=== PATIENT | female | born 1960 | race Caucasian/White ===

== ENCOUNTER 2025-06-14 09:01 | Outpatient (OUT) | payer MEDICARE, SELFPAY ==
--- OUTSIDE RECORDS SUMMARY | 2025-06-14 09:04 | XMS_ITS | Clinical Summary ---
Author Organization [facility] Address [address] [place] [address] Care Team Providers Care Patch Finisher Name Role Phone Amalia Priest DO Primary Care Provider [phone] Social History Tobacco UseTypesPacks/DayYears UsedDateSmoking Tobacco: Never Assessed CommentsUnknownSex and Gender InformationValueDate RecordedSex Assigned at Not on fileLegal HktEuwbqs62/15/2023 7:35 PM EDTGender IdentityNot on fileSexual OrientationNot on file Last Filed Vital Signs Vital SignReadingTime TakenCommentsBlood Jtwchfnr104/7408/27/2021 12:00 PM EST Pulse--Temperature--Respiratory Rate--Oxygen Saturation--Inhaled Oxygen Concentration--Zhpufi329 kg (243 lb 12.8 oz)08/27/2021 12:00 PM SXRLsxftl943 cm (5' 3 )08/27/2021 12:00 PM ESTBody Mass Index43.19008/27/2021 12:00 PM EST Plan of Treatment Not on file Insurance Care Teams Team MemberRelationshipSpecialtyStart DateEnd Date Amalia Priest DO PCP - GeneralFamily Medicine12/22/22
--- OUTSIDE RECORDS SUMMARY | 2025-06-14 09:04 | XMS_ITS | Clinical Summary ---
Author Organization [facility] tem Address [id number] [address] [place] [address] Care Team Providers Care Tie Knitter Helper Name Role Phone Patric Denton MD Primary Care Provider [phone] Allergies Active AllergyReactionsCriticalityNoted DateCommentsPrednisoneOther (See Comments)08/27/2021 Medications MedicationSigDispense QuantityRefillsLast FilledStart DateEnd DateStatus ARMOUR THYROID 30 mg tablet Take 1 tablet by mouth daily.09/17/2019Active hydroCHLOROthiazide (HYDRODIURIL) 25 mg tablet Take 1 tablet by mouth daily.07/02/2019Active gabapentin (NEURONTIN) 100 mg capsule Take 100 mg by mouth in the morning and 100 mg before bedtime.10/23/2021ctive Active Problems No known active problems Immunizations ImmunizationAdministration DatesNext ZuoJ6N0 Inj Preservative Free08/05/2009Hep A / Hep B011/17/2017,03/04/2016Hepatitis A011/17/2017,03/04/2016Influenza Split Preservative Free ID05/17/2017Influenza, Recombinant, Quadrivalent, Injectable, Iatdbta7805/26/2019Pneumococcal Rvdzdfpbizudsn34/21/2018,11/13/2016 Family History Medical HistoryRelationNameCommentsHeart diseaseBrotherDiabetesFatherHeart diseaseFatherHypertensionFatherSleep apneaFatherSnoringFatherDiabetesMother HyperlipidemiaMotherSeizuresMotherStrokeMotherCancerSisterHeart diseaseSister Sleep apneaSisterStrokeSisterRelationNameStatusCommentsBrotherFatherDeceased MotherDeceasedSister Social History Tobacco UseTypesPacks/DayYears UsedDateSmoking Tobacco: NeverSmokeless Tobacco: NeverAlcohol UseStandard Drinks/WeekCommentsNever0 (1 standard drink = 0.6 oz pure alcohol)AUDIT-CAnswerDate RecordedFrequency of Alcohol ConsumptionNever 09/19/2019Average Number of DrinksNot on file09/19/2019Frequency of Binge DrinkingNot on file09/19/2019ChildcareAnswerDate RecordedChildcareUnknown 01/25/2019EmploymentAnswerDate NqhmaftxZpknvuneobHcigsso03/12/2019Purpose - Life AnswerDate RecordedPurpose and direction in dnziOxjmogs36/11/2021 CommentsUnknownSex and Gender InformationValueDate RecordedSex Assigned at Not on fileLegal HwoOjqwgk54/06/2015 11:33 AM EDTGender IdentityNot on file Sexual OrientationNot on file Last Filed Vital Signs Vital SignReadingTime TakenCommentsBlood Zskybcwv767/8703 8:57 AM EDT Bwvjq878711/11/2021 8:57 AM AEUKmudgoijefk24.1 ??C (96.9 ??F)11/11/2021 8:52 AM EDTRespiratory Wcbd552711/11/2021 8:52 AM EDTOxygen Xycqsnlpue83%11/11/2021 8:52 AM EDTInhaled Oxygen Concentration--Yiuuav346.4 kg (239 lb)11/11/2021 8:52 AM FJFRgqkhz129 cm (5' 3 )11/11/2021 8:52 AM EDTBody Mass Index42.34011/11/2021 8:52 AM EDT Plan of Treatment Health MaintenanceDue DateLast DoneCommentsDepression Sgwnqmxxt82/11/1972Tobacco Wpnqipkjb98/11/1972Adult BMI Pcfojmduk56/11/1978DTaP,Tdap and Td Vaccines (1 - Tdap)1979Zoster (Shingles) Vaccine (1 of 2)2010Influenza Vaccine 51, 05/17/2017, 05/16/2016, Additional history existsFall Risk Zsenjdzfe22/11/2025 Medical Devices Not on file Care Teams Team MemberRelationshipSpecialtyStart DateEnd Date Patric Denton MD [address] [place] [address] PCP - GeneralFamily Medicine04/05/17
--- OUTSIDE RECORDS SUMMARY | 2025-06-14 09:04 | XMS_ITS | Clinical Summary ---
Author Organization [facility] Address [address], [address] [place] [address] Care Team Providers Care Production Line Technician Name Role Phone MeryBhavnaXavierCassie M PRECISION INSPECTOR - [employer] Primary Ca re Provider Allergies Active AllergyReactionsCriticalityNoted DateCommentsMethylprednisoloneHives 05/24/2023 Medications MedicationSigDispense QuantityRefillsLast FilledStart DateEnd DateStatus zinc gluconate 50 MG tablet Take 1 tablet by mouth dailyActive Cholecalciferol (VITAMIN D) 50 MCG (1999 UT) CAPS capsule Take by mouthActive Multiple Vitamins-Minerals (THERAPEUTIC MULTIVITAMIN-MINERALS) tablet Take 1 tablet by mouth dailyActive levothyroxine (SYNTHROID) 100 MCG tablet Take 30 mcg by mouth DailyActive Family History Medical HistoryRelationNameCommentsBreast CancerSisterRelationNameStatusComments Sister Social History Tobacco UseTypesPacks/DayYears UsedDateSmoking Tobacco: Never Assessed CommentsUnknownSex and Gender InformationValueDate RecordedSex Assigned at Not on fileLegal TyqKlbaeh00/10/2013 9:35 PM ESTGender IdentityNot on fileSexual OrientationNot on file Last Filed Vital Signs Vital SignReadingTime TakenCommentsBlood Fhljnusv506/9505/24/2023 9:41 AM EDT Ywebo070605/24/2023 9:41 AM EDTTemperature--Respiratory Vmjj8308 9:41 AM EDTOxygen Iotrjjsxfb755%05/24/2023 9:41 AM EDTInhaled Oxygen Concentration-- Weight--Height--Body Mass Index-- Plan of Treatment Health MaintenanceDue DateLast DoneCommentsDepression Zifvbg9505/26/1972HIV screen 1975Hepatitis C lyrmee0505/26/1978DTaP/Tdap/Td vaccine (1 - Tdap)1979 Pap smear1981Cervical cancer aplxld9205/26/1990HPV (without or with Pap) 05/26/19908009Bmbwsr93/11/9929Vhaiplxwdfw70/11/2005FIT/FOBT: Average risk2005 Sigmoidoscopy/CT /11/2005Shingles vaccine (1 of 2)2010DEXA (modify frequency per FRAX score)2015Hepatitis B vaccine (3 of 3 - Hep B Twinrix 3-dose series), 03/04/2016Pneumococcal 50+ years Vaccine (2 of 2 - PCV), 11/13/2016Flu vaccine (#1)03/16/2025 2019, 05/17/2017, 08/05/2009COVID-19 Vaccine ( - season) 2025reast cancer sfyetd98, 05/14/2023, 01/06/2023, Additional history existsColorectal Cancer Qjjbwv9311/25/2026Fecal-DNA (Cologuard): Average risk4Respiratory Syncytial Virus (RSV) or age 60 yrs+ (1 - 1-dose 75+ series)2035Pneumococcal 0-49 years OoufxglLysvmqyvesvf88/21/2018, 11/13/2016Hepatitis A vaccineAged Out11/17/2017, 11/17/2017, 03/04/2016, Additional history existsNo longer eligible based on patient's age to complete this topicHib vaccineAged OutNo longer eligible based on patient's age to complete this topicMeningococcal (ACWY) vaccineAged OutNo longer eligible based on patient's age to complete this topicMeningococcal B vaccineAged OutNo longer eligible based on patient's age to complete this topic Polio vaccineAged OutNo longer eligible based on patient's age to complete this topic Medical Devices ImplantedTypeAreaManufacturerDevice IdentifierShelf Expiration DateModel / Serial / LotBreast Clip-05/24/2023 Implanted:Qty: 1 on 05/24/2023 by Srinath Raman DOBreast ClipRight: Breast [employer] MAMMOTOME_CR05/11/2023/ / [id number]:REF [id number] Procedures Procedure NamePriorityDate/TimeAssociated DiagnosisCommentsMAM RUDDY DIGITAL SCREEN SELF REFERRAL W OR WO CAD SJEJUWJAOLohpokp39/28/2024 3:10 PM EDT Breast cancer screening by mammogram from Last 3 Months or Most Recently Relevant to Health Maintenance Results * MOSES RUDDY DIGITAL SCREEN SELF REFERRAL W OR WO CAD BILATERAL (06/12/2024 3:10 PM EDT)Anatomical RegionLateralityModalityBreastBilateralMammographySpecimen (Source)Anatomical Location / LateralityCollection Method / VolumeCollection TimeReceived Time06/14/2024 9:46 AM EDT Impressions 06/14/2024 9:47 AM EDT Stable exam. No mammographic evidence of malignancy BIRADS: BIRADS - CATEGORY 2 Benign Findings. ??Normal interval follow-up is recommended in 12 months. OVERALL ASSESSMENT - BENIGN A letter of notification will be sent to the patient regarding the results. [employer] recommends annual mammograms for women 40 years and older. Performing Facility: [facility] [id number] Narrative 06/14/2024 9:47 AM EDT EXAMINATION: SCREENING DIGITAL BILATERAL MAMMOGRAM WITH TOMOSYNTHESIS, 06/12/2024 TECHNIQUE: Screening mammography of the bilateral breasts was performed with tomosynthesis. ??2D standard and 3D tomosynthesis combination imaging performed through both breasts in the MLO and CC projection. ??Computer aided detection was utilized in the interpretation of this exam. COMPARISON: January 06, 2023 HISTORY: Screening. FINDINGS: The breasts are heterogeneously dense, which may obscure small masses. There is no dominant mass, architectural distortion or concerning grouping of microcalcification in either breast. ??Benign-appearing calcifications are stable. Authorizing ProviderResult TypeResult StatusCassie Washington APRN - RODY IMG MAMMOGRAPHY ORDERABLESFinal Result from Last 3 Months or Most Recently Relevant to Health Maintenance Insurance Care Teams Team MemberRelationshipSpecialtyStart DateEnd Date Cassie Washington, AILYN Sanon CNP [address] [place] [address] PCP - GeneralCertified Nurse Practitioner01/06/23
--- NOTE | 2025-06-14 09:06 | MM_ITS ---
Patient Name: ANTONETTE VALLE MR#: [id number] : 1960 Exam Date: 06/14/2025 Ordering Doctor: NON-STAFF PHYSICIAN RADIOLOGY REPORT PROCEDURE: MM TOMOSYNTHESIS SCREENING BI COMPARISON: MM TOMOSYNTHESIS SCREENING BI, 06/12/2024. MM POST BIOPSY RT, 05/24/2023. MM TOMOSYNTHESIS DIAGNOSTIC RT, 05/14/2023. MM TOMOSYNTHESIS SCREENING BI, 01/06/2023. INDICATIONS: Screening Calculator Name NCI Breast Cancer Risk Assessment Tool 5 Year Breast Cancer Risk 3.50% Lifetime Breast Cancer Risk 12.70% Personal Breast Cancer No Personal Ovarian Cancer No Treatments None Family Cancers Sister with leukemia cancer at age 36; Sister with breast cancer at age 73; Sister with ovarian/uterine cancer at age 58. LOCATION: [facility] BREAST COMPOSITION: The breasts are heterogeneously dense, which may obscure small masses. FINDINGS: RIGHT BREAST: No significant suspicious finding. LEFT BREAST: No significant suspicious finding. DIAGNOSTIC CATEGORY 1--NEGATIVE. RECOMMENDATIONS: ROUTINE MAMMOGRAM AND CLINICAL EVALUATION IN 12 MONTHS. Dictated by: Niranjan Pate DO on 06/15/2025 at 09:47 Approved by: Niranjan Pate DO on 06/15/2025 at 09:59
== END 2025-06-14 09:02 | disposition home or self-care (01) ==
LOC: MAMMO 09:01
DX: Z12.31 Encounter for screening mammogram for malignant neoplasm of breast (principal); Z80.6 Family history of leukemia; Z80.3 Family history of malignant neoplasm of breast; Z80.41 Family history of malignant neoplasm of ovary; Z80.8 Family history of malignant neoplasm of other organs or systems
CPT/HCPCS: 77063; 77067